=== PATIENT | female | born 1975 | race Two or more races ===

== ENCOUNTER 2018-08-29 06:10 | Day surgery (SDC) | payer OTHER ==
[2018-08-28 11:17] VITALS: BMI 20.7
[2018-08-29] MEDS ORDERED: PROPOFOL 20 ML ONE ×2 (07:22)
[2018-08-29] MEDS ORDERED: SUCCINYLCHOLINE CHLORIDE 200 MG/10 ML VIAL ONE (07:22)
[2018-08-29] MEDS ORDERED: MIDAZOLAM HCL 2 MG/2 ML SINGLE DOSE VIAL ONE (07:23)
[2018-08-29] MEDS ORDERED: ROCURONIUM BROMIDE 50 MG/5 ML VIAL ONE (07:23)
[2018-08-29] MEDS ORDERED: DOXYCYCLINE HYCLATE 100 MG VIAL ONE (07:24)
[2018-08-29] MEDS ORDERED: ONDANSETRON 4 MG/2 ML VIAL IVPUSH PRN ×2 (08:09→08:16)
[2018-08-29] MEDS ORDERED: IBUPROFEN 600 MG TABLET (FP) PO PRN (08:09)
[2018-08-29] MEDS ORDERED: LACTATED RINGERS SOLUTION 1,000 ML IV SCH (08:15)
[2018-08-29] MEDS ORDERED: oxyCODONE HCL 5 MG TABLET PO PRN ×2 (08:16)
[2018-08-29] MEDS ORDERED: PROMETHAZINE HCL 25 MG/1 ML VIAL IVPUSH PRN (08:16)
--- NOTE | 2018-08-29 08:37 | OP ---
DATE OF OPERATION: PREOPERATIVE DIAGNOSIS: Missed and recurrent loss. POSTOPERATIVE DIAGNOSIS: Missed and recurrent loss. SURGEON: Vinicius Nam MD [employer] INSPECTOR: Ha Ramírez MD ANESTHESIA: General with IV propofol sedation. ESTIMATED BLOOD LOSS: 50 mL. COMPLICATIONS: None. SPECIMENS: Products of conception sent both for permanent as well as genetic cyto-analysis. PROCEDURE FOLLOWS: The patient was taken to the operating room where she was prepped and draped in a normal sterile fashion. She was placed in dorsal lithotomy position, and general anesthesia using propofol was obtained. A straight catheter was used to empty the patients bladder of urine. An open-ended speculum was placed after a pelvic exam revealed an anteverted uterus. Cervix was visualized and grasped with a single-tooth tenaculum. The cervix was then dilated to accommodate a No. 7 curved plastic curette. The curette was inserted without complication, and suction was applied until the products of conception were removed. This step was repeated twice. At which point, a sharp curettage was performed, again, followed by one final suction curettage. There was excellent hemostasis at this point. All instruments were removed. Products of conception were sent for both permanent and for genetic cyto-analysis. The patient tolerated the procedure well and was transferred to the recovery room in stable condition. This operative note was completed by Dr. Ha Ramírez. VINICIUS NAM M.D. [id number]
[2018-08-29 09:05] VITALS: TEMP 97.6
[2018-08-29 10:07] VITALS: BP 115/69; PULSE 63
--- NOTE | 2018-09-01 13:05 | PATH ---
Surgical Pathology Report Patient Name: NATASHA DOS SANTOS Med. Rec. #: [id number] /Age/Gender: 1975 (Age: 43) / F Account: [id number] Location: [facility] Taken: 08/29/2018 Received: 08/29/2018 Reported: 09/01/2018 Physicians: Vinicius Nam M.D. Specimen(s) Received PRODUCTS OF CONCEPTION Clinical History Missed Final Diagnosis PRODUCTS OF CONCEPTION, SUCTION D&C: CHORIONIC VILLI, TROPHOBLASTIC TISSUE, DECIDUA AND HYPERSECRETORY ENDOMETRIUM. Note: Fresh tissue was sent to reference laboratory for genetic/chromosome studies. The results will be reported separately in an addendum when available. Electronically Signed Katlyn Jacobs M.D. Gross Description Received in formalin labeled "products of conception," is a 5.0 x 3.5 x 0.7 cm aggregate of woodward-brown fragments of soft tissue. No definite villous tissue or somatic tissue is identified. A payroll representative portion is submitted in 3 cassettes. There is additional tissue received in RPMI solution which is sent to [facility] for chromosomal analysis. /08/30/2018 saudi08/30/2018
== END 2018-08-29 10:00 | disposition home or self-care (01) ==
LOC: FASU 06:10
PROVIDERS: ATTEND Obstetrics & Gynecology Reproductive Endocrinology
PROC: 10D17ZZ Extraction of Products of Conception, Retained, Via Natural or Artificial Opening (ICD-10-PCS; principal; 2018-08-29 07:51)
DX: O02.1 Missed abortion (principal); N96 Recurrent pregnancy loss
CPT/HCPCS: 84703; 88305-TC; 94760